=== PATIENT | female | born 1970 | race Two or more races ===

== ENCOUNTER 2020-06-13 08:00 | Emergency (ER) | payer OTHER ==
[~2020-06-13] VITALS: Ht 157.5 cm; Wt 67.1 kg
[2020-06-13] MEDS ORDERED: CYCLOBENZAPRINE10 MG PO (09:16)
[2020-06-13] MEDS ORDERED: DICLOFENAC POTA50 MG PO (09:16)
== END 2020-06-13 09:34 ==
LOC: ER 08:00
DX: M94.0 Chondrocostal junction syndrome [Tietze] (principal)